=== PATIENT | female | born 1975 | race Caucasian/White ===

== ENCOUNTER 2016-02-16 11:34 | Emergency (ER) | payer MEDICAID, OTHER ==
[2016-02-16 12:49] VITALS: BP 128/86
--- NOTE | 2016-02-16 13:01 | UC ---
[facility] HPI - HPI Summary HPI Summary: return of pain ful swelling around a broken tooth on left lower bottom jaw - recently on amoxicillin and when antibiotic stopped sx returned, she has spoke with her dentist plan is treat infection and follow with dentist for definitive care - History of Current Complaint Chief Complaint: UCDentalProblem Stated Complaint: DENTAL PAIN Time Seen by Provider: 02/16/16 13:01 Hx Obtained From: Patient Hx Last Menstrual Period: 02/13/16 ?: No Onset/Duration: Sudden Onset, Lasting Days Severity: Moderate Aggravating: Nothing Alleviating: OTC Meds Related History: Previous Dental Care on Same Tooth - Allergies/Home Medications Allergies/Adverse Reactions: Allergies Allergy/AdvReac Type Severity Reaction Status Date / Time CI Pigment Blue 63 Allergy Unknown Verified 02/07/16 09:08 [From Cymbalta] Reaction Details Duloxetine [From Cymbalta] Allergy Unknown Verified 02/07/16 09:08 Reaction Details Gabapentin AdvReac Fatigue Verified 02/07/16 09:08 Sertraline [From Zoloft] AdvReac Anxiety Verified 02/07/16 09:08 PMH/Surg Hx/FS Hx/Imm Hx Previously Healthy: Yes Endocrine History Of: Denies: Diabetes Cardiovascular History Of: Denies: Hypertension, Pacemaker/ICD GI/ History Of: Denies: Renal Disease Psychological History Of: Reports: Anxiety - Surgical History Surgical History: None - Family History Known Family History: Positive: Cardiac Disease, Hypertension - Social History Occupation: Employed Full-time Lives: With Family Alcohol Use: Occasionally Substance Use Type: None Substance Use Comment - Amount & Last Used: denies Smoking Status (MU): Heavy Every Day Tobacco Smoker Type: Cigarettes Amount Used/How Often: > 1/2 ppd Have You Smoked in the Last Year: Yes Household Exposure Type: Cigarettes - Immunization History Most Recent Influenza Vaccination: none Review of Systems Constitutional: Negative Skin: Negative Eyes: Negative ENT: Dental Pain - left lower gum/tooth #20 Respiratory: Negative Cardiovascular: Negative Gastrointestinal: Negative Genitourinary: Negative Motor: Negative Neurovascular: Negative Musculoskeletal: Negative Neurological: Negative Psychological: Negative All Other Systems Reviewed And Are Negative: Yes Physical Exam Triage Information Reviewed: Yes Appearance: Well-Appearing, No Pain Distress, Well-Nourished Vital Signs: Initial Vital Signs Temp 97.7 F 02/16/16 12:43 Pulse 80 02/16/16 12:43 Resp 16 02/16/16 12:43 BP 128/86 02/16/16 12:43 Pulse Ox 100 02/16/16 12:43 Vital Signs Reviewed: Yes Eye Exam: Normal Eyes: Positive: Conjunctiva Clear ENT Exam: Normal ENT: Positive: Normal ENT inspection, Hearing grossly normal, Pharynx normal, TMs normal. Negative: Nasal congestion, Nasal drainage, Tonsillar swelling, Tonsillar exudate, Trismus, Muffled/hoarse voice Dental Exam: Other Dental: Positive: Gross Decay/Caries @ - left lower jaw, Abscess @ Neck exam: Normal Neck: Positive: Supple, Nontender Respiratory Exam: Normal Respiratory: Positive: Chest non-tender, Lungs clear, Normal breath sounds, No respiratory distress, No accessory muscle use Cardiovascular Exam: Normal Cardiovascular: Positive: RRR, No Murmur, Pulses Normal, Brisk Capillary Refill Musculoskeletal Exam: Normal Musculoskeletal: Positive: Strength Intact, ROM Intact, No Edema Neurological Exam: Normal Neurological: Positive: Alert, Muscle Tone Normal Psychological Exam: Normal Skin Exam: Normal Dental Complaint Course/Dx - Course Course Of Treatment: clindamycin, ibuprofen, tylenol, salt water rinse follow with dentist as planned - Differential Dx/Diagnosis Differential Diagnosis/Dx: Dental Abscess, Dental Caries, Fractured Tooth, Odontogenic Pain Provider Diagnoses: fracture tooth #20, dental abscess Discharge - Discharge Plan Condition: Stable Disposition: HOME Prescriptions: Clindamycin Cap(NF) [Cleocin 300 mg Cap(NF)] 300 mg PO Q6H #28 cap Patient Education Materials: How to Stop Smoking (ED), Dental Abscess (ED), Cigarette Smoking and Your Health (GEN) Referrals: Elbert Stokes [Primary Care Provider] - If Needed Additional Instructions: Follow up with dentist as planned
== END 2016-02-16 13:12 | disposition home or self-care (01) ==
LOC: UCCORT 11:34
DX: K04.7 Periapical abscess without sinus (principal); K03.81 Cracked tooth; Z88.8 Allergy status to other drugs, medicaments and biological substances; F17.210 Nicotine dependence, cigarettes, uncomplicated
CPT/HCPCS: 99212; G0463

== ENCOUNTER 2016-05-17 19:13 | Emergency (ER) | payer MEDICAID | END 2016-05-17 19:47 | disposition left against medical advice (07) | LOC: UCCORT 19:13 | DX: N39.9 Disorder of urinary system, unspecified (principal); Z53.21 Procedure and treatment not carried out due to patient leaving prior to being seen by health care provider ==

== ENCOUNTER 2017-11-03 12:33 | Emergency (ER) | payer OTHER ==
--- NOTE | 2017-11-04 17:40 | UC ---
Discharge - Sign-Out/Discharge Documenting (check all that apply): Post-Discharge Follow Up All imaging exams completed and their final reports reviewed: No Studies - Discharge Plan Disposition: LEFT WITHOUT BEING SEEN Referrals: Elbert Stokes [Primary Care Provider] - - Billing Disposition and Condition Disposition: Left Without Being Seen
== END 2017-11-03 13:28 | disposition left against medical advice (07) ==
LOC: UCCORT 12:33
DX: R05 Cough (principal); Z53.21 Procedure and treatment not carried out due to patient leaving prior to being seen by health care provider

== ENCOUNTER 2017-12-08 15:09 | Emergency (ER) | payer OTHER ==
[2017-12-08 15:53] VITALS: BP 137/90
--- NOTE | 2017-12-08 16:13 | UC ---
Dental HPI - HPI Summary HPI Summary: C/O abscess left lower teeth/ jaw. Has a broken tooth. No fevers/ sweats or chills. - History of Current Complaint Chief Complaint: UCDentalProblem Stated Complaint: DENTAL COMPLAINT Time Seen by Provider: 12/08/17 16:06 Hx Obtained From: Patient Hx Last Menstrual Period: 11/12/17 ?: No Onset/Duration: Sudden Onset, Lasting Days - 1, Worse Since - onset Severity: Severe Pain Intensity: 7 Aggravating Factor(s): Chewing Alleviating Factor(s): Nothing Related History: Swelling - Allergies/Home Medications Allergies/Adverse Reactions: Allergies Allergy/AdvReac Type Severity Reaction Status Date / Time duloxetine Allergy Unknown Verified 12/08/17 15:50 Reaction Details gabapentin AdvReac Fatigue Verified 12/08/17 15:50 sertraline AdvReac Anxiety Verified 12/08/17 15:50 PMH/Surg Hx/FS Hx/Imm Hx Previously Healthy: Yes - Surgical History Surgical History: None - Family History Known Family History: Positive: Cardiac Disease, Hypertension - Social History Occupation: Employed Full-time Lives: With Family Alcohol Use: None Substance Use Type: None Substance Use Comment - Amount & Last Used: denies Smoking Status (MU): Current Every Day Smoker Type: Cigarettes Amount Used/How Often: 12-15 cigarettes/day Have You Smoked in the Last Year: Yes Household Exposure Type: Cigarettes Cessation Counseling: Patient Advised to Stop - Immunization History Most Recent Influenza Vaccination: none Review of Systems ENT: Dental Pain Is Patient Immunocompromised?: No All Other Systems Reviewed And Are Negative: Yes Physical Exam Triage Information Reviewed: Yes Appearance: Well-Nourished, Ill-Appearing, Pain Distress Vital Signs: Initial Vital Signs Temp 98 F 12/08/17 15:48 Pulse 85 12/08/17 15:48 Resp 17 12/08/17 15:48 BP 137/90 12/08/17 15:48 Pulse Ox 99 12/08/17 15:48 Vital Signs Reviewed: Yes Eyes: Positive: Conjunctiva Clear ENT: Positive: Pharynx normal, TMs normal Dental: Positive: Dental Fracture @ - #20, Abscess @ - #20 Neck exam: Normal Respiratory Exam: Normal Cardiovascular Exam: Normal Musculoskeletal Exam: Normal Neurological Exam: Normal Psychological Exam: Normal Skin Exam: Normal Dental Complaint Course/Dx - Differential Dx/Diagnosis Differential Diagnosis/Dx: Dental Abscess, Dental Caries, Fractured Tooth, Gingivitis Provider Diagnoses: Dental abscess Discharge - Sign-Out/Discharge Documenting (check all that apply): Patient Departure All imaging exams completed and their final reports reviewed: No Studies - Discharge Plan Condition: Stable Disposition: HOME Prescriptions: Penicillin VK 500 MG TAB(NF) [Penicillin VK 500 mg Tab] 500 mg PO QID #40 tab Patient Education Materials: Dental Abscess (ED), Penicillin V (By mouth) Referrals: Elbert Stokes [Primary Care Provider] - - Billing Disposition and Condition Condition: STABLE Disposition: Home
== END 2017-12-08 16:25 | disposition home or self-care (01) ==
LOC: UCCORT 15:09
DX: K04.7 Periapical abscess without sinus (principal); F17.210 Nicotine dependence, cigarettes, uncomplicated; Z88.8 Allergy status to other drugs, medicaments and biological substances
CPT/HCPCS: 99212; G0463

== ENCOUNTER → 2018-03-08 05:42 | Day surgery (SDC) | payer OTHER ==
[~2018-03-08 05:42] MED LIST: Acetaminophen IV 1GM/100ML * 1,000 MG/100 ML VIAL IVPB ONE; Acetaminophen IV 1GM/100ML * 100 ML ONE; Amphetamine/Dextroamph ER(NF) 15 MG CAP.ER PO SCH; Buffered Lidocaine 1% SYRIN* 1 ML/SYRINGE INTRADERM ONE; Cyclobenzaprine TAB* 10 MG PO PRN; Dexamethasone IV* 4 MG/ML 1 ML (4 MG) ONE; DiMENhydriNATE IV* 50 MG/ML VIAL IV PUSH PRN; DiMENhydriNATE IV* 50 MG/ML VIAL ONE; Famotidine IV* 10 MG/ML 2 ML (20 mg) IV ONE; Famotidine IV* 10 MG/ML 2 ML (20 mg) ONE; Glycopyrrolate IV* 0.2 MG/ML 1 ML VIAL ONE; HYDROmorphone INJ* 0.5 MG/0.5 ML SYRINGE IV PRN; HYDROmorphone INJ1* 1 MG/ML SYRINGE ONE; Ibuprofen TAB* 600 MG PO PRN; Ketorolac INJ* 30 MG/ML 1 ML VIAL IV PRN; Ketorolac INJ* 30 MG/ML 1 ML VIAL ONE; Lactated Ringers 1000 ML Bag* 1,000 ML IV SCH; Lidocain 1% EPI 1:100,000 * 30 ML MDV ONE; Midazolam* 1 MG/ML 5 ML VIAL (5 MG) ONE; Naloxone* 0.4 MG/ML 1 ML VIAL IV PRN; Neostigmine Methylsulfate* 1 MG/ML 10 ML VIAL (1 mg/ml) ONE; Ondansetron INJ* 2 MG/ML VIAL IV PRN; Ondansetron INJ* 2 MG/ML VIAL ONE; Propofol* 10 MG/ML 20 ML BTL ONE; Propranolol TAB* 40 MG PO SCH; Rocuronium* 10 MG/ML VIAL ONE; Succinylcholine* 20 MG/ML 10 ML VIAL ONE; ceFOXitin 2 GM IVPREMIX* 2 GM/50 ML BAG ONE; fentaNYL* 50 MCG/ML 2 ML VIAL (100 MCG VIAL) ONE; oxyCODONE TAB* 5 MG TAB ONE; oxyCODONE TAB* 5 MG TAB PO PRN; oxyCODONE/Acetamin 5/325 MG* TAB PO PRN
[2018-03-08] MEDS: HYDROmorphone INJ1* 1 MG/ML SYRINGE IV PRN ×2 (09:16→09:26)
[2018-03-08 09:33] VITALS: BP 130/94
--- NOTE | 2018-03-08 11:01 | OP ---
AMENDED REPORT NOW INCLUDES DATE OF OPERATION - ESIGNED BEFORE ADJUSTMENT * DATE OF OPERATION: 03/08/18 DATE OF : 73 SURGEON: Dr. Street. CDL SERVICE TECHNICIAN: Dr. Rodriguez. ANESTHESIA: General endotracheal tubes. PRE-OP DIAGNOSES: 1. Menorrhagia. 2. History of cervical dysplasia. POST-OP DIAGNOSES: 1. Menorrhagia. 2. History of cervical dysplasia. 3. Fibroid uterus. OPERATIVE PROCEDURE: Transvaginal hysterectomy and bilateral salpingectomy. ESTIMATED BLOOD LOSS: 50 cc. SPECIMEN: Include uterus and fallopian tubes. FINDINGS: On vaginal hysterectomy, the right ovary was well visualized and appeared normal. Left ovary could not be well visualized. Both tubes appeared normal. The uterus was mid position and had a fundal fibroid approximately 3x4 cm. DESCRIPTION OF PROCEDURE: The patient identified, procedure identified as a transvaginal hysterectomy. The patient was taken to the operating room, prepped and draped in the usual fashion in the dorsal lithotomy position under general anesthesia. Two single-tooth tenaculums were placed in the anterior lip of the cervix around the sidewalls of the cervix. The cervix was injected with 1% Xylocaine with epi 1:200,000 at the cervicovaginal junction. This junction was then incised using the Bovie. The cul-de-sac was entered via sharp dissection without difficulty. The anterior vagina was dissected cephalad. The uterosacral ligaments were clamped, cut, and ligated. The cardinal ligament was then clamped, cut, and ligated. LigaSure was used to ensure hemostasis. The anterior vesicoperitoneal fold was entered via sharp dissection without difficulty. The broad ligament was then using the LigaSure, clamped, cut, and ligated all the way up to the ovarian ligaments. The fundus of the uterus and fibroids were delivered through the posterior cul-de-sac. Anders clamps were placed over the ovarian ligament and the fallopian tubes and LigaSure was used to incise, clamp, cauterize, and incise it. This was also suture-ligated both ovarian ligaments with good hemostasis. The fallopian tubes were grasped with Lang and using LigaSure, these were excised. Hemostasis was verified in all pedicles. A modified Kendall stitch was placed. The cuff was then closed using 0 Polysorb in a [id number] fashion and the cuff was completely closed. The Kendall stitch was tied down. The bladder was catheterized with 700 cc of clear urine obtained. All sponge and instrument counts were correct and the patient returned to the recovery room in stable condition. [id number]/[id number] #: [id number] MTDD
== END | disposition home or self-care (01) ==
LOC: OR 05:42
PROVIDERS: ATTEND Obstetrics & Gynecology
DX: N92.0 Excessive and frequent menstruation with regular cycle (principal); N80.0 Endometriosis of uterus; D25.1 Intramural leiomyoma of uterus; D25.2 Subserosal leiomyoma of uterus; Z72.0 Tobacco use; F98.8 Other specified behavioral and emotional disorders with onset usually occurring in childhood and adolescence; F41.8 Other specified anxiety disorders
CPT/HCPCS: 81025; 88307; A9270-GY; J0330; J0694; J1100; J1170; J1240; J1885; J2250; J2405; J2704; J2710; J3010

== ENCOUNTER 2018-05-12 17:48 | Emergency (ER) | payer BC, OTHER ==
--- OUTSIDE RECORDS SUMMARY | 2018-05-12 18:20 | XMS REPORT | Continuity of Care Document ---
:1975 External Reference #:[id number] M.D. Address [address] [place] [address] Care Team Providers Name Role Phone Elbert Quarles PA Primary Care Physician Unavailable Payers Date Identification Numbers Payment Provider Subscriber Policy Number: [id number] [employer] Madleyn Mcleod PayID: [id number] [address] [address] [place] [address] Expires: 2018 Policy Number: [id number] [facility] Madelyn Mcleod PayID: [id number] [address] [place] [address] Expires: 2018 Policy Number: [id number] Medicaid [place] Madelyn Mcleod PayID: [id number] [address] [place] [address] Advance Directives Description No Information Available Problems Description No Information Family History Date Family Member(s) Observation Comments Father Bipolar Disorder Father Asthma Mother Lupus Mother Arthritis Mother Hypertension Children 2 First Son No Current Problems Second Son No Current Problems Siblings 4 Siblings Second of five children First Brother Drug Addiction Second Brother A&W Twin Third Brother Drug Addiction Twin First Sister Autoimmune Disease Paternal Grandfather due to Colon Cancer () Paternal Grandmother due to AK () Maternal Grandfather Cancer Maternal Grandfather due to Lung Cancer () Maternal Grandmother Breast Cancer Maternal Grandmother Ovarian Cancer Maternal Grandmother kidney cancer Social History Type Date Description Comments Sex Unknown Education Highest level completed, 12th grade Marital Status Single Lives With Male Partner Lives With Sons Sleep Typically sleeps 7 hours a night Pets 1 cat Pets 1 dog Occupation cleaning Tobacco Use Start: Unknown Patient is a current cigarette smoker, smokes every day ETOH Use Occasionally consumes Approx 1 glass of alcohol wine per day Recreational Drug Use Denies Drug Use Tobacco Use Start: Unknown Patient is a current smoker, smokes every day Smoking Status Reviewed: 04/16/18 Patient is a current smoker, smokes every day Exercise Type/Frequency Exercises regularly Seat Belt/Car Seat Always uses seat belt Currently Active Patient is currently sexually active Contraceptive Methods None Allergies, Adverse Reactions, Alerts Description No Known Drug Allergies Medications Medication Date Status Form Strength Qnty SIG Indications Ordering Provider Ibuprofen Active Tablets 600mg 30tabs take one Z01.818 Abdon Patel 019 tab by Gelber, mouth M.D. every 6 hours as needed pain B-12 Active Unknown 000 Vitamin D Active Unknown (Cholecalcifero 000 l) Adderall Active Unknown 000 Propranolol HCL Active Tablets 40mg bid Unknown 000 Flexeril Active Unknown 000 Oxycodone-Aceta Hx Tablets 5-325mg 14tabs 1 by Z01.818 Abdon Patel minophen 019 - mouth Gelber, q4hr M.DGuerrero 019 Tranexamic Acid Hx Tablets 650mg 30tabs 2 by Abdon Patel 017 - mouth Gelber, three M.D. 018 times a day Vitamin D3 Hx Unknown 000 - 017 Hydrocodone Hx Unknown Bitartrate 000 - 017 Medications Administered in Office Medication Date Status Form Strength Qnty SIG Indications Ordering Provider PT SCRN Tbco Administered Injection Abdon Patel Id as Non User [address] Immunizations Description No Information Available Vital Signs Date Vital Result Comment 04/16/2018 1:44pm BP Systolic 122 mmHg BP Diastolic 68 mmHg Height 68 inches 5'8" Weight 175.00 lb BMI (Body Mass Index) 26.6 kg/m2 Last Menstrual Period [id number] 5 Parity 2 02/27/2018 9:08am BP Systolic 130 mmHg BP Diastolic 84 mmHg Height 68 inches 5'8" Weight 170.00 lb BMI (Body Mass Index) 25.8 kg/m2 Last Menstrual Period 1138015 5 Parity 2 01/21/2018 9:04am BP Systolic 130 mmHg BP Diastolic 84 mmHg Height 68 inches 5'8" Weight 169.00 lb BMI (Body Mass Index) 25.7 kg/m2 Last Menstrual Period 2949953 5 Parity 2 11/06/2017 2:29pm BP Systolic 122 mmHg BP Diastolic 72 mmHg Height 68 inches 5'8" Weight 165.00 lb BMI (Body Mass Index) 25.1 kg/m2 Last Menstrual Period 4782225 5 Parity 2 01/18/2017 10:05am BP Systolic 124 mmHg BP Diastolic 76 mmHg Height 68 inches 5'8" Weight 168.00 lb BMI (Body Mass Index) 25.5 kg/m2 Last Menstrual Period 3123915 5 Parity 2 01/25/2015 9:56am BP Systolic 126 mmHg BP Diastolic 72 mmHg Height 68 inches 5'8" Weight 178.00 lb BMI (Body Mass Index) 27.1 kg/m2 Last Menstrual Period 7330362 5 Parity 2 12/01/2013 8:46am BP Systolic 122 mmHg BP Diastolic 76 mmHg Height 68 inches 5'8" Weight 174.00 lb BMI (Body Mass Index) 26.5 kg/m2 Last Menstrual Period 8587709 5 Parity 2 11/04/2013 3:34pm BP Systolic 122 mmHg BP Diastolic 86 mmHg Height 68 inches 5'8" Weight 171.00 lb BMI (Body Mass Index) 26.0 kg/m2 Last Menstrual Period 7549920 07/29/2013 9:42am BP Systolic 116 mmHg BP Diastolic 70 mmHg Height 68 inches 5'8" Weight 170.00 lb BMI (Body Mass Index) 25.8 kg/m2 Last Menstrual Period 2583659 5 Parity 2 Results Test Date Facility Test Result H/L Range Note Laboratory test 03/08/2018 [facility] Surgical SEE RESULT 1 [place] [address] Pathology BELOW [phone] CBC Auto Diff 02/27/2018 [facility] White Blood 9.2 10^3/uL N 3.5-10.8 [place] [address] Count [phone] Red Blood Count 4.36 10^6/uL N 4.00-5.40 Hemoglobin 13.7 g/dL N 12.0-16.0 Hematocrit 41 % N 35-47 Mean Corpuscular Volume 95 fL N 80-97 Mean Corpuscular Hemoglobin 31 pg N 27-31 Mean Corpuscular HGB Conc 33 g/dL N 31-36 Red Cell Distribution Width 13 % N 10.5-15 Platelet Count 186 10^3/uL N 150-450 Mean Platelet Volume 10.3 fL N 7.4-10.4 Abs Neutrophils 6.6 10^3/uL N 1.5-7.7 Abs Lymphocytes 1.7 10^3/uL N 1.0-4.8 Abs Monocytes 0.6 10^3/uL N 0-0.8 Abs Eosinophils 0.2 10^3/uL N 0-0.6 Abs Basophils 0 10^3/uL N 0-0.2 Abs Nucleated RBC 0 10^3/uL Granulocyte % 71.9 % Lymphocyte % 19.0 % Monocyte % 6.5 % Eosinophil % 2.2 % Basophil % 0.4 % Nucleated Red Blood Cells % 0 Type And Screen 02/27/2018 [facility] Patient Blood [place] [address] [phone] Antibody Screen NEGATIVE Laboratory test 01/21/2018 [facility] Cytology SEE RESULT 2 [place] [address] BELOW [phone] Thyroid Function 11/06/2017 [facility] Thyroid Stim 0.7 mIU/L 0.3-4 [address] [place] [address] Hormone .2 [phone] CBC Auto Diff 11/06/2017 [facility] White Blood 11.1 10^3/uL High 3.5-1 [place] [address] Count 0.8 [phone] Red Blood Count 4.53 10^6/uL N 4.00-5.40 Hemoglobin 14.2 g/dL N 12.0-16.0 Hematocrit 44 % N 35-47 Mean Corpuscular Volume 96 fL N 80-97 Mean Corpuscular Hemoglobin 32 pg High 27-31 Mean Corpuscular HGB Conc 33 g/dL N 31-36 Red Cell Distribution Width 15 % N 10.5-15 Platelet Count 207 10^3/uL N 150-450 Mean Platelet Volume 9.7 um3 N 7.4-10.4 Abs Neutrophils 7.5 10^3/uL N 1.5-7.7 Abs Lymphocytes 2.8 10^3/uL N 1.0-4.8 Abs Monocytes 0.5 10^3/uL N 0-0.8 Abs Eosinophils 0.3 10^3/uL N 0-0.6 Abs Basophils 0 10^3/uL N 0-0.2 Abs Nucleated RBC 0 10^3/uL Granulocyte % 67.1 % N 38-83 Lymphocyte % 25.2 % N 25-47 Monocyte % 4.7 % N 0-7 Eosinophil % 2.6 % N 0-6 Basophil % 0.4 % N 0-2 Nucleated Red Blood Cells % 0 Laboratory test 01/18/2017 [facility] Cytology SEE RESULT BELOW [address] [place] [address] [phone] Laboratory test 01/25/2015 [facility] Cytology SEE RESULT BELOW 5 [place] [address] [phone] Human Papilloma Virus Rna POSITIVE Abnormal Negative 6 Laboratory test 12/01/2013 [facility] Cytology RUN DATE: 7 finding [place] SEE [phone] NOTE> HPV High Risk 12/01/2013 [facility] Human Papillomavirus See Comment N 8 [place] [address] Source [phone] HPV High Risk Type 16, PCR Negative N Negative HPV High Risk Type 18, PCR Negative N Negative HPV Other Risk types Negative N Negative 9 1 SEE RESULT BELOW Name: MADELYN MCLEOD : [address]: Abdon Street MD Acct: [id number] Unit: [id number] AGE: 43 Location: OR Re03/08/18 SEX: F Status: REG [facility] SPEC: [id number] ADRIANA: 03/08/18- [facility] DR: Abdon Street MD REQ: [id number] RECD: 03/08/18 STATUS: SOUT _ ORDERED: LEVEL 5 FINAL DIAGNOSIS Uterus with cervix and bilateral fallopian tubes, hysterectomy with bilateral salpingectomy (127 g): -- Uterine cervix with no significant pathologic abnormality. -- Adenomyosis, extensive. 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 PRE-OPERATIVE DIAGNOSIS Excessive and frequent menstruation with regular cycles GROSS DESCRIPTION The specimen is received in formalin labeled, Uterus, Cervix and Bilateral Fallopian Tubes, and consists of a 127 g, 8.3 (superior to inferior) x 5.6 (cornu to cornu) x 4.7 cm (anterior to posterior) distorted uterus with attached cervix. There is a 4.5 x 4.0 x 3.4 cm subserosal nodule extending from the posterior superior specimen. The serosa is glistening smooth schultz-red. The cervix measures 3.6 x 3.5 cm. The ectocervix is glistening smooth to wrinkled schultz-white with a central 0.8 by up to 0.2 cm slitlike os. The endocervix is mucinous schultz-pink. The endometrial cavity measures 4.0 by up to 2.6 cm and is lined by a glistening schultz-red focally shaggy endometrium with a maximum thickness of 0.6 cm. There is a 0.9 x 0.8 x 0.8 cm intramural nodule within the anterior myometrium. The cut surface of both nodules is schultz-white rubbery whorled and well-defined. No hemorrhage or necrosis is identified. The remaining myometrium is moderately trabeculated schultz-pink with a maximum thickness of 2.1 cm. Received separately in the same container are three schultz -pink fallopian tube segments ranging from 1.6 x 0.4 cm to 2.6 x 0.6 cm. Two of the fragments are fimbriated. The serosa is glistening smooth schultz-red and the cut surface is unremarkable. [employer] Trimmer sections are submitted in cassettes A through F as follows: A- anterior and CONTINUED ON NEXT PAGE DEPARTMENT OF PATHOLOGY, [address] [place] [address] Elbert Georges M.D. Director [facility] # [id number] RUN DATE: 03/11/18 [facility] LAB LIVE PAGE 2 Patient: MADELYN MCLEOD [id number] (Continued) GROSS DESCRIPTION (Continued) posterior cervix to include inked posterior, B-anterior endomyometrium to include nodule, C-posterior endomyometrium, D-subserosal nodule and E and F-fallopian tubes. Signed by and Reported on: Elbert Georges MD 1546 END OF REPORT DEPARTMENT OF PATHOLOGY, [address] [place] [address] Elbert Georges M.D. Director [facility] # [id number] 2 SEE RESULT BELOW Name: MADELYN MCLEOD : [address]: Abdon Street MD Acct: [id number] Unit: [id number] AGE: 42 Location: [facility] Re01/21/18 SEX: F Status: REG REF SPEC: [id number] ADRIANA: 01/21/[address] [facility] [address]: Abdon Street MD REQ: [id number] RECD: 01/21/18 STATUS: EVAN PETERSON DR: Elbert MOREL _ ORDERED: TP IMAGE ANALYS, HPV/Thin Prep COMMENTS: [id number] Negative for Intraepithelial lesion or Malignancy Fungal organisms morphologically consistent with Natasha species Date Time Test Result Flag (u) Normal Range 01/21/18 0930 @ HPV RNA Negative Negative @ @ The high-risk HPV types detected by the assay include: 16, @ 18, 31, 33, 35, 39, 45, 51, 52, 56, 58, 59, 66, and 68. A. Ectocervical/Endocervical Specimen Adequacy: Satisfactory of evaluation Transformation zone component not identified Patient Information: HPV: High risk HPV RNA testing regardless of pap results. Actual Specimen Date: 01/21/18 Last Menstrual Date: 01/10/18 Date of Last Specimen: 01/18/17 Signed by and Reported on: LONI Martinez(ASCP) 1542 This Pap test was evaluated with the assistance of the [employer]Prep Test Imaging System. Due to cytologic findings at the garde manger microscope, comprehensive manual rescreening by a Ward Supervisor may be required. The Pap Smear is a screening test designed to aid in the detection of premalignant and malignant conditions of the uterine cervix. It is not a diagnostic procedure and should not be used as the sole means of detecting cervical cancer. Both false- positive and false- negative reports do occur. Depending on your risk status, a Pap smear should be obtained and evaluated every 1-3 years. END OF REPORT DEPARTMENT OF PATHOLOGY, [address] [place] [address] Elbert Georges M.D. Director [facility] # [id number] 3 Test Performed by: [address] [address] 4 SEE RESULT BELOW Name: MADELYN MCLEOD : [address]: Abdon Street MD Acct: [id number] Unit: [id number] AGE: 41 Location: [facility] Re01/18/17 SEX: F Status: REG REF SPEC: [id number] ADRIANA: 01/18/17-[address] [facility] [address]: Abdon Street MD REQ: [id number] RECD: 01/18/17 STATUS: SOUT _ ORDERED: TP IMAGE ANAL, HPV/Thin Prep COMMENTS: [id number] Negative for Intraepithelial lesion or Malignancy A. Ectocervical/Endocervical Specimen Adequacy: Satisfactory of evaluation Transformation zone component identified Patient Information: HPV: High risk HPV RNA testing regardless of pap results. Actual Specimen Date: 01/18/17 Last Menstrual Date: 12/30/16 Previous Abnormal Pap Smears?:Y If Yes, enter Diagnosis: Low grade squamous intraepithelial lesion. +HPV Date Time Test Result Flag (u) Normal Range 01/18/17 1044 @ HPV RNA Negative Negative @ @ The high-risk HPV types detected by the assay include: 16, @ 18, 31, 33, 35, 39, 45, 51, 52, 56, 58, 59, 66, and 68. Signed (signature on file) LONI Martinez(ASC) 01/19 1531 This Pap test was evaluated with the assistance of the [employer] Test Imaging System. Due to cytologic findings at the garde manger microscope, comprehensive manual rescreening by a Ward Supervisor may be required. The Pap Smear is a screening test designed to aid in the detection of premalignant and malignant conditions of the uterine cervix. It is not a diagnostic procedure and should not be used as the sole means of detecting cervical cancer. Both false- positive and false- negative reports do occur. Depending on your risk status, a Pap smear should be obtained and evaluated every 1-3 years. END OF REPORT * ML=Testing performed at Main Lab DEPARTMENT OF PATHOLOGY, [address] [place] [address] Elbert Georges M.D. Director [facility] # [id number] 5 SEE RESULT BELOW Name: MADELYN MCLEOD : [address]: Abdon Street MD Acct: [id number] Unit: [id number] AGE: 39 Location: [facility] Re01/25/15 SEX: F Status: REG REF SPEC: [id number] ADRIANA: 01/25/15-[address] [facility] [address]: Abdon Street MD REQ: [id number] RECD: 01/25/15 STATUS: SOUT _ ORDERED: IMAGE ANALYSIS, HPV/Thin Prep FINAL DIAGNOSIS Negative for Intraepithelial lesion or Malignancy A. Ectocervical/Endocervical Specimen Adequacy: Satisfactory of evaluation Transformation zone component identified Patient Information: HPV: High risk HPV RNA testing regardless of pap results. Actual Specimen Date: 01/25/15 Last Menstrual Date: 01/01/15 Date of Last Specimen: 12/01/13 Date Time Test Result Flag (u) Normal Range 01/25/15 1018 HPV RNA POSITIVE H Negative The high-risk HPV types detected by the assay include: 16, 18, 31, 33, 35, 39, 45, 51, 52, 56, 58, 59, 66, and 68. Signed (signature on file) Curryruiztena Gonzalez 01/26/15 1518 This Pap test was evaluated with the assistance of the [employer] Test Imaging System. Due to cytologic findings at the garde manger microscope, comprehensive manual rescreening by a Ward Supervisor may be required. The Pap Smear is a screening test designed to aid in the detection of premalignant and malignant conditions of the uterine cervix. It is not a diagnostic procedure and should not be used as the sole means of detecting cervical cancer. Both false- positive and false- negative reports do occur. Depending on your risk status, a Pap smear should be obtained and evaluated every 1-3 years. END OF REPORT * ML=Testing performed at Main Lab DEPARTMENT OF PATHOLOGY, [address] [place] [address] Elbert Georges M.D. Director [facility] # [id number] 6 The high-risk HPV types detected by the assay include: 16, 18, 31, 33, 35, 39, 45, 51, 52, 56, 58, 59, 66, and 68. 7 RUN DATE: 12/01/13 [facility] LAB LIVE PAGE 1 RUN TIME: [address] [place], [place] [address] Specimen Inquiry Name: MADELYN MCLEOD : [address]: Abdon Street MD Acct: [id number] Unit: [id number] AGE: 38 Location: [facility] Re12/01/13 SEX: F Status: REG REF SPEC: [id number] ADRIANA: 12/01/13-[address] [facility] [address]: Abdon Street MD REQ: [id number] RECD: 12/01/136 STATUS: SOUT _ ORDERED: IMAGE ANALYSIS, PAP SM PATH REV, HPV/Thin Prep FINAL DIAGNOSIS EPITHELIAL CELL ABNORMALITIES Atypical squamous cells of undetermined significance COMMENTS: Specimen sent to [facility] in [place], [place] on 12/01/13 by [id number] at 1450. Results will be reported separately. A. Ectocervical/Endocervical Specimen Adequacy: Satisfactory of evaluation Transformation zone component identified Patient Information: HPV: High risk HPV DNA testing regardless of pap results. Actual Specimen Date: 12/01/13 Last Menstrual Date: 11/12/13 Spec Date if unknown: 04/2013 Previous Abnormal Pap Smears?:Y If Yes, enter Diagnosis: High grade squamous intraepithelial lesion. Signed (signature on file) Elbert Georges MD 1657 This Pap test was evaluated with the assistance of the [employer]Prep Test Imaging System. Due to cytologic findings at the garde manger microscope, comprehensive manual rescreening by a Ward Supervisor may be required. The Pap Smear is a screening test designed to aid in the detection of premalignant and malignant conditions of the uterine cervix. It is not a diagnostic procedure and should not be used as the sole means of detecting cervical cancer. Both false- positive and false- negative reports do occur. Depending on your risk status, a Pap smear shoudl be obtained and evaluated every 1-3 years. END OF REPORT * ML=Testing performed at Main Lab DEPARTMENT OF PATHOLOGY, [address] [place] [address] Elbert Georges M.D. Director [facility] # [id number] RESULT: Ectocervical/Endocervical 9 The following Other High Risk HPV types were not detected: 31, 33, 35, 39, 45, 51, 52, 56, 58, 59, 66, and 68 Test Performed by: [place] [address] Director Athletic: Gianluca Fishman M.D. Procedures Date Code Description Status 03/08/2018 10954 Hysterectomy Vaginal W/Removal Tube/Ovary Completed 03/08/2018 69127 Hysterectomy Vaginal W/Removal Tube/Ovary Completed 05/13/2016 71002995 Mammogram Completed Encounters Type Date Location Provider Dx Diagnosis Office Visit 02/27/2018 [facility] [address]don [address], Z01.818 Encounter for other 9:00a M.D. preprocedural examination Office Visit 01/21/2018 [facility] [address], Z01.411 Encntr for student services coordinator exam 9:20a M.DGuerrero (general) (routine) w abnormal findings N92.0 Excessive and frequent menstruation with regular cycle Office Visit 11/06/2017 3:00p [facility] Office Abdon Patel N92.[address] frequent menstruation with regular cycle Office Visit 01/18/2017 10:20a [facility] Office Abdon Patel Z01.411 Encntr for student services coordinator exam [address] (general) (routine) w abnormal findings N94.5 Secondary dysmenorrhea Office Visit 01/25/2015 10:40a [facility] Abdon Patel Z01.419 Encntr for student services coordinator [address] exam (general) (routine) w/o abn findings Office Visit 12/01/2013 10:00a [facility] Abdon Patel V13.22 Personal HX Of [address] Cervical Dysplasia 079.4 Human Papilloma Virus Office Visit 11/04/2013 3:40p [facility] Abdon Patel 626.[address] Excessive Or Frequent 079.4 Human Papilloma Virus V16.41 Family History Malignant Neoplasm Ovary Office Visit 07/29/2013 10:00a [facility] Abdon Patel 626.[address] Excessive Or Frequent 079.4 Human Papilloma Virus V16.41 Family History Malignant Neoplasm Ovary Plan of Treatment 04/16/2018 - Abdon Street M.D.N92.0 Excessive and frequent menstruation with regular cycleComments:routine follow up
[2018-05-12 18:26] VITALS: BP 178/107
--- NOTE | 2018-05-12 18:39 | UC ---
UC General HPI - HPI Summary HPI Summary: SORE THROAT AND L EAR PAIN X 2 DAYS. HAD SOME WHILE SPOTS ON L SIDE OF THROAT THAT "I WIPED OFF" THENGARGLED WITH LISTARINE. NO FEVER. - History of Current Complaint Chief Complaint: UCEar Stated Complaint: LEFT EAR PAIN/SORE THROAT Time Seen by Provider: 05/12/18 18:22 Hx Obtained From: Patient Hx Last Menstrual Period: 11/12/17 Timing: Constant Pain Intensity: 4 Associated Signs & Symptoms: Negative: Fever - Allergy/Home Medications Allergies/Adverse Reactions: Allergies Allergy/AdvReac Type Severity Reaction Status Date / Time duloxetine Allergy Unknown Verified 05/12/18 18:26 Reaction Details gabapentin AdvReac Fatigue Verified 05/12/18 18:26 sertraline AdvReac Anxiety Verified 05/12/18 18:26 Home Medications: Home Medications Amitriptyline TAB* [Elavil TAB*] 50 mg PO DAILY PRN 05/12/18 [History Confirmed 05/12/18] PMH/Surg Hx/FS Hx/Imm Hx - Additional Past Medical History Additional PMH: ADD Cardiovascular History: Hypertension Psychological History: Anxiety - Surgical History Surgical History: Yes Surgery Procedure, Year, and Place: 2 EPIDURALS WITH CHILDBIRTH. WISDOM TEETH EXTRACTED. partial hysterectomy 02/2018 - Family History Known Family History: Positive: Cardiac Disease, Hypertension - Social History Alcohol Use: Rare Substance Use Type: None Substance Use Comment - Amount & Last Used: denies Smoking Status (MU): Light Every Day Tobacco Smoker Type: Cigarettes Amount Used/How Often: 8 cig daily Have You Smoked in the Last Year: Yes Household Exposure Type: Cigarettes - Immunization History Most Recent Influenza Vaccination: none Review of Systems All Other Systems Reviewed And Are Negative: Yes ENT: Positive: Sore Throat, Ear Ache Physical Exam Triage Information Reviewed: Yes Appearance: Well-Appearing Vital Signs: Initial Vital Signs Temp 97.5 F 05/12/18 18:21 Pulse 72 05/12/18 18:21 Resp 15 05/12/18 18:21 BP 178/107 05/12/18 18:21 Pulse Ox 99 05/12/18 18:21 Vital Signs Reviewed: Yes Eyes: Positive: Conjunctiva Clear ENT: Positive: Pharyngeal erythema, TMs normal, Uvula midline, Other - Ear canals are clear. No auricular adenoapthy or mastoid tenderness.. Negative: Nasal congestion, Nasal drainage, Tonsillar exudate, Trismus, Muffled voice, Hoarse voice Neck: Positive: Supple, Nontender, No Lymphadenopathy Respiratory: Positive: Lungs clear, Normal breath sounds, No respiratory distress Cardiovascular: Positive: RRR, No Murmur Abdomen Description: Positive: Nontender Bowel Sounds: Positive: Present Musculoskeletal: Positive: ROM Intact Neurological: Positive: Alert Psychological: Positive: Age Appropriate Behavior Skin Exam: Normal Re-Evaluation - Re-Evaluation First Eval Re-Evaluation Time: 19:23 Change: Improved - BP 160/100. pt notes poor BP control x 3 years. Course/Dx - Course Course Of Treatment: rapid strep=negative - Differential Dx - Multi-Symptom Differential Diagnoses: Other - THE RAPID STREP=NEG AND EAR IS UNREMARKABLE, TX SUPPORTIVE. ANTIBIOTICS NOT INDICATED. PT HAS HX HTN WHICH SHE NOTES HAS BEEN DIFFICULT TO CONTROL FOR ABOUT 3 YEARS. SHE REPORTS HAVING HX PALPITATIONS WELL BUT NONE CURRENTLY. SHE HAS NO CP, SOB OR PATEL. NO CONCERN FOR HYPERTENSIVE URGENCY OR EMERGENCY. WILL REFER TO [facility] FOR ADDITIONAL EVALUATION. PT JUST HAD HER PROPANOLOL INCREASED FROM 40MG BID TO 80MG BID. BP AT TRIAGE WAS 178/107 AND BP AT DISCHARGE WAS 160/100. - Diagnoses Provider Diagnosis: Pharyngitis, Otalgia of left ear, Hypertension Discharge - Sign-Out/Discharge Documenting (check all that apply): Patient Departure All imaging exams completed and their final reports reviewed: No Studies - Discharge Plan Condition: Stable Disposition: HOME Patient Education Materials: Pharyngitis (ED), Earache (ED), Hypertension (ED) Referrals: Willam MOREL,Elbert Hubbard [Primary Care Provider] - If Needed Basilia Beltran MD [Medical Doctor] - As Soon As Possible Additional Instructions: FOLLOW UP [facility] IF NOT BETTER IN 5 DAYS OR SOONER IF WORSE. CALL DR BELTRAN(CARDIOLOGY) TO BE SEEN SOON POSSIBLE FOR THE HIGH BP AND HISTORY OF PALPITATIONS. - Billing Disposition and Condition Condition: STABLE Disposition: Home
== END 2018-05-12 19:47 | disposition home or self-care (01) ==
LOC: UCCORT 17:48
DX: J02.9 Acute pharyngitis, unspecified (principal); H92.02 Otalgia, left ear; I10 Essential (primary) hypertension; F17.210 Nicotine dependence, cigarettes, uncomplicated; F41.9 Anxiety disorder, unspecified; Z88.8 Allergy status to other drugs, medicaments and biological substances; Z79.899 Other long term (current) drug therapy
CPT/HCPCS: 87651; 99211; G0463